=== PATIENT | male | born 1940 | race African-American/Black ===

== ENCOUNTER 2017-01-04 23:10 | Emergency (ER) | payer MEDICARE ==
[~2017-01-04] VITALS: Ht 170.2 cm; Wt 82.8 kg
[~2017-01-04 23:10] MED LIST: ADVAIR DISKUS PO; ALBUTERO1 IN; BACTRIM DS1 TAB PO; CIPRO500 MG OR; COMBIVENT IN; DOXYCYC MONO100 MG OR; LIPITOR10 MG OR; LISINOPRIL10 MG PO; LORTAB 5 OR; LYRICA150 MG PO; MEDDOSEPAK OR; METFORMIN500 MG OR; PREDNISONE20 MG OR; PREVACID30 M1 PO; ROBITUSSIN200 MG/10 PO; SINGULAIR OR; TESSALON PER100 MG PO; THEO-24200 MG OR; ULTRAM50 M1 PO; ULTRAM50 MG PO; ZITHROMAX250 MG PO; ZPAK PO
[2017-01-05 02:34] LABS: HEMATOCRIT 38.3 % (39.0-50.0); IMMATURE GRANULOCYTES 0.2 % (0.0-1.0); MEAN CELL VOLUME 87.2 fL CALC (80.0-100.0); MEAN CORPUSCULAR HGB 29.6 pG CALC (26.0-32.0); MEAN CORPUSCULAR HGB CONC 33.9 g/L CALC (32.0-36.0); NEUT# 2.52 thou/uL (1.82-7.42); RED BLOOD COUNT 4.39 mill/uL (4.70-6.10); RED CELL DISTRI WIDTH 13.4 % (11.5-15.5)
[2017-01-05 02:53] LABS: INFLUENZA A NONE DETECTED (NONE DETECT); INFLUENZA B NONE DETECTED (NONE DETECT)
[2017-01-05 02:56] LABS: ACT PARTIAL THROMBO TIME 29.6 SECONDS (20.0-32.5); INTERNATIONAL NORMALIZED RATIO 0.9 RATIO (0.7-1.3); PROTHROMBIN TIME 9.8 SECONDS (9.0-12.5)
[2017-01-05 02:57] LABS: ALBUMIN 3.9 g/dL (3.2-5.0); ALKALINE PHOSPHATASE 79 u/l (38-126); ANION GAP 16 (6-22 (CALC)); BILIRUBIN, TOTAL 0.8 mg/dL (0.0-1.4); BUN 14 mg/dL (8-23); BUN/CREATININE RATIO 15 (12-20 (CALC)); CALCIUM 8.4 mg/dL (8.4-10.2); CARBON DIOXIDE 25 mmol/l (22-30); CHLORIDE 102 mmol/l (95-108); GFR > 60 ML/MIN (>=60 (CALC)); GFR FOR AFR.AMER. > 60 ML/MIN (>=60 (CALC)); GLUCOSE 91 mg/dL (82-115); SGOT/AST 45 u/l (19-48); SGPT/ALT 33 u/l (11-66); SODIUM 139 mmol/l (137-146); TOTAL PROTEIN 7.5 g/dL (6.3-8.2)
[2017-01-05 03:08] LABS: MYOGLOBIN 72 ng/mL (0 - 121)
[2017-01-05 03:32] LABS: URINE BILIRUBIN - DIPSTICK NEGATIVE (NEGATIVE); URINE BLOOD DIPSTICK NEGATIVE (NEGATIVE); URINE CLARITY CLEAR; URINE COLOR YELLOW; URINE GLUCOSE - DIPSTICK NEGATIVE (NEGATIVE); URINE KETONE NEGATIVE (NEGATIVE); URINE LEUK ESTERASE NEGATIVE (NEGATIVE); URINE NITRITE - DIPSTICK NEGATIVE (Negative); URINE PROTEIN - DIPSTICK NEGATIVE (NEG-TRACE); URINE SPECIFIC GRAVITY 1.025; URINE UROBILINOGEN - DIPSTICK 0.2 E.U./dL (0.2)
[2017-01-05 04:40] VITALS: BP 137/71
== END 2017-01-05 04:38 | disposition home or self-care (01) ==
LOC: ED 23:10
PROVIDERS: Emergency Medicine
DX: J44.1 Chronic obstructive pulmonary disease with (acute) exacerbation (principal); R05 Cough; R06.02 Shortness of breath

== ENCOUNTER 2017-02-06 01:35 | Emergency (ER) | payer MEDICARE ==
[~2017-02-06] VITALS: Ht 170.2 cm; Wt 83.6 kg
[2017-02-06 02:46] LABS: INFLUENZA A NONE DETECTED (NONE DETECT); INFLUENZA B NONE DETECTED (NONE DETECT)
[2017-02-06 03:07] LABS: HEMATOCRIT 38.6 % (39.0-50.0); HEMOGLOBIN 13.1 g/dl (14.0-18.0); IMMATURE GRANULOCYTES 0.2 % (0.0-1.0); MEAN CELL VOLUME 87.7 fL CALC (80.0-100.0); MEAN CORPUSCULAR HGB 29.8 pG CALC (26.0-32.0); MEAN CORPUSCULAR HGB CONC 33.9 g/L CALC (32.0-36.0); NEUT# 3.7 thou/uL (1.82-7.42); RED BLOOD COUNT 4.4 mill/uL (4.70-6.10); RED CELL DISTRI WIDTH 13.7 % (11.5-15.5)
[2017-02-06 03:19] LABS: ALBUMIN 4.1 g/dL (3.2-5.0); ALKALINE PHOSPHATASE 67 u/l (38-126); ANION GAP 13 (6-22 (CALC)); BILIRUBIN, TOTAL 0.6 mg/dL (0.0-1.4); BUN 10 mg/dL (8-23); BUN/CREATININE RATIO 11 (12-20 (CALC)); CALCIUM 8.8 mg/dL (8.4-10.2); CARBON DIOXIDE 27 mmol/l (22-30); CHLORIDE 106 mmol/l (95-108); CREATININE 0.9 mg/dL (0.7-1.3); GFR > 60 ML/MIN (>=60 (CALC)); GFR FOR AFR.AMER. > 60 ML/MIN (>=60 (CALC)); GLUCOSE 101 mg/dL (82-115); POTASSIUM 3.9 mmol/l (3.5-5.1); SGOT/AST 43 u/l (19-48); SGPT/ALT 40 u/l (11-66); SODIUM 142 mmol/l (137-146); TOTAL PROTEIN 7.6 g/dL (6.3-8.2)
[2017-02-06] MEDS ORDERED: ROBITUSSIN AC10 ML PO (03:26)
[2017-02-06] MEDS ORDERED: CEPHALEXIN500 MG PO (03:26)
[2017-02-06] MEDS ORDERED: MEDDOSEPAK PO (03:26)
[2017-02-06 03:30] LABS: MYOGLOBIN 107 ng/mL (0 - 121)
[2017-02-06 04:05] VITALS: BP 137/80
== END 2017-02-06 04:50 | disposition home or self-care (01) ==
LOC: ED 01:35
PROVIDERS: Emergency Medicine
DX: J44.1 Chronic obstructive pulmonary disease with (acute) exacerbation (principal); J06.9 Acute upper respiratory infection, unspecified; R05 Cough

== ENCOUNTER 2017-10-02 18:30 | Emergency (ER) | payer MEDICARE ==
[~2017-10-02] VITALS: Ht 170.2 cm; Wt 84.0 kg
[~2017-10-02 18:30] MED LIST changes: +CEPHALEXIN500 MG PO; +MEDDOSEPAK PO; +ROBITUSSIN AC10 ML PO
[2017-10-02 19:57] LABS: HEMATOCRIT 43.5 % (39.0-50.0); HEMOGLOBIN 14.2 g/dl (14.0-18.0); IMMATURE GRANULOCYTES 0.3 % (0.0-1.0); MEAN CELL VOLUME 91.2 fL CALC (80.0-100.0); MEAN CORPUSCULAR HGB 29.8 pG CALC (26.0-32.0); MEAN CORPUSCULAR HGB CONC 32.6 g/L CALC (32.0-36.0); NEUT# 4.27 thou/uL (1.82-7.42); RED BLOOD COUNT 4.77 mill/uL (4.70-6.10)
[2017-10-02 20:02] LABS: ALBUMIN 4.3 g/dL (3.2-5.0); ALKALINE PHOSPHATASE 69 u/l (38-126); AMYLASE 109 u/l (30-110); ANION GAP 15 (6-22 (CALC)); BILIRUBIN, TOTAL 1.2 mg/dL (0.0-1.4); BUN 19 mg/dL (8-23); BUN/CREATININE RATIO 20 (12-20 (CALC)); CALCIUM 9.2 mg/dL (8.4-10.2); CARBON DIOXIDE 28 mmol/l (22-30); CHLORIDE 103 mmol/l (95-108); CREATININE 0.9 mg/dL (0.7-1.3); GFR > 60 ML/MIN (>=60 (CALC)); GFR FOR AFR.AMER. > 60 ML/MIN (>=60 (CALC)); GLUCOSE 102 mg/dL (82-115); LIPASE 238 u/l (23-300); POTASSIUM 4.7 mmol/l (3.5-5.1); SGOT/AST 51 u/l (19-48); SGPT/ALT 38 u/l (11-66); SODIUM 141 mmol/l (137-146)
[2017-10-02 20:14] LABS: MYOGLOBIN 55 ng/mL (0 - 121)
[2017-10-02 22:00] VITALS: BP 148/76
[2017-10-02] MEDS ORDERED: ZOFRAN ODT4 MG PO (22:18)
== END 2017-10-02 22:00 | disposition left against medical advice (07) ==
LOC: ED 18:30
PROVIDERS: Emergency Medicine
DX: R10.84 Generalized abdominal pain (principal); R11.2 Nausea with vomiting, unspecified; R19.7 Diarrhea, unspecified; I10 Essential (primary) hypertension; E11.8 Type 2 diabetes mellitus with unspecified complications; Z79.84 Long term (current) use of oral hypoglycemic drugs; Z91.19 Patient's noncompliance with other medical treatment and regimen
CPT/HCPCS: S0164

== ENCOUNTER 2018-01-19 09:06 | Emergency (ER) | payer OTHER, MEDICARE ==
[~2018-01-19] VITALS: Ht 170.2 cm; Wt 70.0 kg
[~2018-01-19 09:06] MED LIST changes: +ZOFRAN ODT4 MG PO
[2018-01-19 09:15] VITALS: BP 177/88
== END 2018-01-19 09:31 | disposition left against medical advice (07) | DRG 951 ==
LOC: ED 09:06 → LWOBS 09:31
DX: Z91.19 Patient's noncompliance with other medical treatment and regimen (principal)

== ENCOUNTER 2019-11-16 | Emergency (ER) | payer MEDICARE ==
[2019-11-16 21:34] LABS: HEMATOCRIT 39.1 % (39.0-50.0); IMMATURE GRANULOCYTES 0.2 % (0.0-5.0); MEAN CELL VOLUME 88.9 fL CALC (80.0-100.0); MEAN CORPUSCULAR HGB 29.5 pG CALC (26.0-32.0); MEAN CORPUSCULAR HGB CONC 33.2 g/L CALC (32.0-36.0); NEUT# 2.27 thou/uL (1.82-7.42); RED BLOOD COUNT 4.4 mill/uL (4.70-6.10); RED CELL DISTRI WIDTH 13.6 % (11.5-15.5)
[2019-11-16 21:59] LABS: ALBUMIN 4.1 g/dL (3.2-5.0); ALKALINE PHOSPHATASE 75 u/l (38-126); ANION GAP 14 (6-22 (CALC)); BILIRUBIN, TOTAL 0.9 mg/dL (0.0-1.4); BUN 32 mg/dL (8-23); BUN/CREATININE RATIO 27 (12-20 (CALC)); CARBON DIOXIDE 24 mmol/l (22-30); CHLORIDE 103 mmol/l (95-108); CREATININE 1.2 mg/dL (0.7-1.3); GFR 58 ML/MIN (>=60 (CALC)); GFR FOR AFR.AMER. > 60 ML/MIN (>=60 (CALC)); POTASSIUM 4.2 mmol/l (3.5-5.1); SGOT/AST 43 u/l (19-48); SODIUM 136 mmol/l (137-146); TOTAL PROTEIN 7.7 g/dL (6.3-8.2)
[2019-11-16 22:10] LABS: MYOGLOBIN 168 ng/mL (0 - 121)
[2019-11-17] MEDS ORDERED: CODEINE/GUAIFEN1 SOL PO (00:15)
[2019-11-17] MEDS ORDERED: Levaquin PO (00:15)
[2019-11-17 00:34] LABS: URINE BILIRUBIN - DIPSTICK NEGATIVE (NEGATIVE); URINE BLOOD DIPSTICK NEGATIVE (NEGATIVE); URINE COLOR YELLOW; URINE GLUCOSE - DIPSTICK NEGATIVE (NEGATIVE); URINE KETONE NEGATIVE (NEGATIVE); URINE LEUK ESTERASE NEGATIVE (NEGATIVE); URINE NITRITE - DIPSTICK NEGATIVE (Negative); URINE PROTEIN - DIPSTICK NEGATIVE (NEG-TRACE)
== END 2019-11-17 00:40 | disposition home or self-care (01) ==
PROVIDERS: Emergency Medicine
DX: J43.9 Emphysema, unspecified (principal); I10 Essential (primary) hypertension; E11.9 Type 2 diabetes mellitus without complications

== ENCOUNTER 2021-11-15 03:28 | Emergency (ER) | payer MEDICARE ==
[~2021-11-15] VITALS: Ht 152.4 cm; Wt 78.0 kg
[~2021-11-15 03:28] MED LIST changes: +CODEINE/GUAIFEN1 SOL PO; +Levaquin PO
[2021-11-15 04:18] LABS: HEMATOCRIT 43.2 % (39.0-50.0); HEMOGLOBIN 14.1 g/dl (14.0-18.0); IMMATURE GRANULOCYTES 0.4 % (0.0-5.0); MEAN CELL VOLUME 91.7 fL CALC (80.0-100.0); MEAN CORPUSCULAR HGB 29.9 pG CALC (26.0-32.0); MEAN CORPUSCULAR HGB CONC 32.6 g/dL CAL (32.0-36.0); NEUT# 2.7 thou/uL (1.82-7.42); RED BLOOD COUNT 4.71 mill/uL (4.70-6.10); RED CELL DISTRI WIDTH 13.5 % (11.5-15.5)
[2021-11-15 04:34] LABS: ALBUMIN 4.3 g/dL (3.2-5.0); ALKALINE PHOSPHATASE 64 u/l (38-126); ANION GAP 12 (6-22 (CALC)); BILIRUBIN, TOTAL 0.8 mg/dL (0.0-1.4); BUN 17 mg/dL (8-23); BUN/CREATININE RATIO 14 (12-20 (CALC)); CARBON DIOXIDE 28 mmol/l (22-30); CHLORIDE 102 mmol/l (95-108); CREATININE 1.2 mg/dL (0.7-1.3); GFR 58 ML/MIN (>=60 (CALC)); GFR FOR AFR.AMER. > 60 ML/MIN (>=60 (CALC)); POTASSIUM 4.9 mmol/l (3.5-5.1); SGOT/AST 41 u/l (19-48); SODIUM 138 mmol/l (137-146); TOTAL PROTEIN 8.2 g/dL (6.3-8.2)
[2021-11-15 04:45] LABS: MYOGLOBIN 109 ng/mL (0 - 121)
[2021-11-15] MEDS ORDERED: KEFLEX500 MG PO (04:54)
[2021-11-15] MEDS ORDERED: ROBITUSSIN AC10 ML PO (04:54)
[2021-11-15 05:39] VITALS: BP 142/74
== END 2021-11-15 05:39 | disposition home or self-care (01) ==
LOC: ED 03:28
PROVIDERS: Emergency Medicine
DX: J43.9 Emphysema, unspecified (principal); J06.9 Acute upper respiratory infection, unspecified; I10 Essential (primary) hypertension; E11.9 Type 2 diabetes mellitus without complications; Z99.81 Dependence on supplemental oxygen; T41.5X6A Underdosing of therapeutic gases, initial encounter; Z91.128 Patient's intentional underdosing of medication regimen for other reason; Z79.84 Long term (current) use of oral hypoglycemic drugs; Z20.822 Contact with and (suspected) exposure to COVID-19

== ENCOUNTER 2022-01-08 10:37 | Emergency (ER) | payer OTHER, MEDICARE ==
[~2022-01-08] VITALS: Ht 170.2 cm; Wt 81.8 kg
[~2022-01-08 10:37] MED LIST changes: +KEFLEX500 MG PO
[2022-01-08 13:26] LABS: HEMATOCRIT 43.1 % (39.0-50.0); HEMOGLOBIN 14.1 g/dl (14.0-18.0); IMMATURE GRANULOCYTES 0.4 % (0.0-5.0); MEAN CELL VOLUME 91.5 fL CALC (80.0-100.0); MEAN CORPUSCULAR HGB 29.9 pG CALC (26.0-32.0); MEAN CORPUSCULAR HGB CONC 32.7 g/dL CAL (32.0-36.0); NEUT# 2.52 thou/uL (1.82-7.42); RED BLOOD COUNT 4.71 mill/uL (4.70-6.10); RED CELL DISTRI WIDTH 14.1 % (11.5-15.5)
[2022-01-08 13:47] LABS: ALKALINE PHOSPHATASE 61 u/l (38-126); ANION GAP 14 (6-22 (CALC)); BILIRUBIN, TOTAL 0.6 mg/dL (0.0-1.4); BUN 14 mg/dL (8-23); BUN/CREATININE RATIO 12 (12-20 (CALC)); CARBON DIOXIDE 26 mmol/l (22-30); CHLORIDE 104 mmol/l (95-108); CREATININE 1.2 mg/dL (0.7-1.3); GFR 58 ML/MIN (>=60 (CALC)); GFR FOR AFR.AMER. > 60 ML/MIN (>=60 (CALC)); LIPASE 237 u/l (23-300); POTASSIUM 4.6 mmol/l (3.5-5.1); SGOT/AST 42 u/l (19-48); SODIUM 140 mmol/l (137-146)
[2022-01-08 14:20] VITALS: BP 164/98
== END 2022-01-08 14:45 | disposition short-term general hospital (02) | DRG 87 ==
LOC: ED 10:37
PROVIDERS: Family Medicine
DX: S06.300A Unspecified focal traumatic brain injury without loss of consciousness, initial encounter (principal); M54.2 Cervicalgia; I10 Essential (primary) hypertension; E11.9 Type 2 diabetes mellitus without complications; J43.9 Emphysema, unspecified; V53.6XXA Passenger in pick-up truck or van injured in collision with car, pick-up truck or van in traffic accident, initial encounter; Z79.84 Long term (current) use of oral hypoglycemic drugs
CPT/HCPCS: J1953

== ENCOUNTER 2022-12-06 08:47 | Emergency (ER) | payer MEDICARE ==
[~2022-12-06] VITALS: Ht 170.2 cm; Wt 77.1 kg
[2022-12-06] VITALS (7 sets, daily range): BP systolic 106–157; BP diastolic 77–102
[2022-12-06 09:29] LABS: BASO% 0.7 % (0-3); EOS% 2.4 % (0-8); HEMATOCRIT 41.9 % (39.0-50.0); LYMPH% 16.3 % (15-41); MEAN CELL VOLUME 92.3 fL CALC (80.0-100.0); MEAN CORPUSCULAR HGB 30.8 pG CALC (26.0-32.0); MEAN CORPUSCULAR HGB CONC 33.4 g/dL CAL (32.0-36.0); MONO% 12.4 % (2-13); NEUT# 2.85 thou/uL (1.82-7.42); NEUT% 68.2 % (42-76); RED BLOOD COUNT 4.54 mill/uL (4.70-6.10); RED CELL DISTRI WIDTH 13.7 % (11.5-15.5)
[2022-12-06 09:38] LABS: ALBUMIN 4.6 g/dL (3.2-5.0); ALKALINE PHOSPHATASE 65 u/l (38-126); ANION GAP 16 (6-22 (CALC)); BUN 17 mg/dL (8-23); BUN/CREATININE RATIO 18 (12-20 (CALC)); CARBON DIOXIDE 23 mmol/l (22-30); CHLORIDE 106 mmol/l (95-108); GFR FOR AFR.AMER. > 60 ML/MIN (>=60 (CALC)); GFR OTHER RACES > 60 ML/MIN (>=60 (CALC)); POTASSIUM 4.4 mmol/l (3.5-5.1); SGOT/AST 37 u/l (19-48); SODIUM 140 mmol/l (137-146); TOTAL PROTEIN 8.1 g/dL (6.3-8.2)
[2022-12-06 10:18] LABS: URINE BILIRUBIN - DIPSTICK NEGATIVE (NEGATIVE); URINE BLOOD DIPSTICK TRACE-INTACT (NEGATIVE); URINE COLOR YELLOW; URINE GLUCOSE - DIPSTICK NEGATIVE (NEGATIVE); URINE KETONE 15 mg/dL (NEGATIVE); URINE LEUK ESTERASE NEGATIVE (NEGATIVE); URINE PH 5.5 (4.5-8.0); URINE PROTEIN - DIPSTICK NEGATIVE (NEG-TRACE); URINE SPECIFIC GRAVITY >=1.030; URINE UROBILINOGEN - DIPSTICK 0.2 E.U./dL (0.2)
[2022-12-06 10:19] LABS: URINE NITRITE - DIPSTICK NEGATIVE (Negative)
== END 2022-12-06 14:02 | disposition home or self-care (01) ==
LOC: ED 08:47
PROVIDERS: Family Medicine
PROC: 0HQ0XZZ Repair Scalp Skin, External Approach (ICD-10-PCS; principal; 2022-12-06)
DX: S01.01XA Laceration without foreign body of scalp, initial encounter (principal); I10 Essential (primary) hypertension; E11.9 Type 2 diabetes mellitus without complications; J43.9 Emphysema, unspecified; E78.5 Hyperlipidemia, unspecified; F03.90 Unspecified dementia, unspecified severity, without behavioral disturbance, psychotic disturbance, mood disturbance, and anxiety; W01.0XXA Fall on same level from slipping, tripping and stumbling without subsequent striking against object, initial encounter; Y92.009 Unspecified place in unspecified non-institutional (private) residence as the place of occurrence of the external cause

== ENCOUNTER 2023-01-17 12:57 | Emergency (ER) | payer MEDICARE ==
[~2023-01-17] VITALS: Ht 170.2 cm; Wt 86.0 kg
[2023-01-17 15:16] VITALS: BP 158/94
[2023-01-17 15:31] VITALS: BP 166/108
[2023-01-17 15:45] VITALS: BP 164/103
[2023-01-17 16:15] VITALS: BP 166/97
[2023-01-17 16:31] VITALS: BP 139/108
[2023-01-17 18:03] LABS: BASO% 0.5 % (0-3); EOS% 0.1 % (0-8); HEMATOCRIT 46.4 % (39.0-50.0); IMMATURE GRANULOCYTES 0.1 % (0.0-5.0); LYMPH% 9.5 % (15-41); MEAN CELL VOLUME 91.3 fL CALC (80.0-100.0); MEAN CORPUSCULAR HGB 29.5 pG CALC (26.0-32.0); MEAN CORPUSCULAR HGB CONC 32.3 g/dL CAL (32.0-36.0); MONO% 8.6 % (2-13); NEUT# 6.04 thou/uL (1.82-7.42); NEUT% 81.2 % (42-76); RED BLOOD COUNT 5.08 mill/uL (4.70-6.10); RED CELL DISTRI WIDTH 13.3 % (11.5-15.5)
[2023-01-17 18:46] LABS: ALBUMIN 5.2 g/dL (3.2-5.0); ALKALINE PHOSPHATASE 63 u/l (38-126); ANION GAP 19 (6-22 (CALC)); BILIRUBIN, TOTAL 1.9 mg/dL (0.2-1.3); BUN 34 mg/dL (8-23); BUN/CREATININE RATIO 27 (12-20 (CALC)); CARBON DIOXIDE 26 mmol/l (22-30); CHLORIDE 100 mmol/l (95-108); CREATININE 1.3 mg/dL (0.7-1.3); GFR FOR AFR.AMER. > 60 ML/MIN (>=60 (CALC)); GFR OTHER RACES 53 ML/MIN (>=60 (CALC)); POTASSIUM 4.8 mmol/l (3.5-5.1); SGOT/AST 148 u/l (19-48); SODIUM 141 mmol/l (137-146); TOTAL PROTEIN 8.5 g/dL (6.3-8.2)
[2023-01-17 20:26] VITALS: BP 139/108
== END 2023-01-17 20:41 | disposition home or self-care (01) ==
LOC: ED 12:57
PROVIDERS: Nurse Practitioner
PROC: 0HQ0XZZ Repair Scalp Skin, External Approach (ICD-10-PCS; principal; 2023-01-17)
DX: S01.01XA Laceration without foreign body of scalp, initial encounter (principal); F03.918 Unspecified dementia, unspecified severity, with other behavioral disturbance; I10 Essential (primary) hypertension; E11.9 Type 2 diabetes mellitus without complications; J43.9 Emphysema, unspecified; V48.4XXA Person boarding or alighting a car injured in noncollision transport accident, initial encounter

== ENCOUNTER 2023-05-22 10:35 | Emergency (ER) | payer MEDICARE ==
[~2023-05-22] VITALS: Ht 167.6 cm; Wt 77.0 kg
[2023-05-22] MEDS ORDERED: OMEPRAZOLE DR40 MG PO (11:02)
[2023-05-22 11:18] VITALS: BP 159/88
== END 2023-05-22 11:18 | disposition left against medical advice (07) ==
LOC: ED 10:35
DX: R06.02 Shortness of breath (principal); I10 Essential (primary) hypertension; E11.9 Type 2 diabetes mellitus without complications; J43.9 Emphysema, unspecified; Z53.29 Procedure and treatment not carried out because of patient's decision for other reasons; Z20.822 Contact with and (suspected) exposure to COVID-19

== ENCOUNTER 2025-01-22 21:53 | Emergency (ER) | payer OTHER, MEDICARE ==
[~2025-01-22] VITALS: Ht 167.6 cm; Wt 71.6 kg
[~2025-01-22 21:53] MED LIST changes: +IPRATROPIU0.5 MG/3 M IN; +OMEPRAZOLE DR40 MG PO; +PREDNISONE50 MG PO; +SEROQUEL50 MG PO; +TAM75CAP PO
[2025-01-22] MEDS ORDERED: methylPREDNISolone SODIUM SUCC 125 MG/2 ML SDV IV ONE (22:00)
[2025-01-22] MEDS ORDERED: IPRATROPIUM-Albuterol 0.5MG-2.5MG/3 ML NEB ONE (22:00)
[2025-01-22 22:22] LABS: BASO% 0.4 % (0-3); EOS% 0.6 % (0-8); HEMATOCRIT 41.4 % (39.0-50.0); HEMOGLOBIN 13.1 g/dl (14.0-18.0); IMMATURE GRANULOCYTES 0.1 % (0.0-5.0); LYMPH% 9.6 % (15-41); MEAN CELL VOLUME 89.2 fL CALC (80.0-100.0); MEAN CORPUSCULAR HGB 28.2 pG CALC (26.0-32.0); MEAN CORPUSCULAR HGB CONC 31.6 g/dL CAL (32.0-36.0); MONO% 10.9 % (2-13); NEUT# 6.1 thou/uL (1.82-7.42); NEUT% 78.4 % (42-76); RED BLOOD COUNT 4.64 mill/uL (4.70-6.10)
[2025-01-22 22:23] VITALS: BP 154/76
[2025-01-22 22:34] LABS: ALBUMIN 4.7 g/dL (3.2-5.0); ALKALINE PHOSPHATASE 117 u/l (38-126); BUN 25 mg/dL (8-23); BUN/CREATININE RATIO 20 (12-20 (CALC)); CARBON DIOXIDE 23 mmol/l (22-30); CHLORIDE 104 mmol/l (95-108); CREATININE 1.3 mg/dL (0.7-1.3); ESTIMATED GFR 54 ML/MIN (>=90 (CALC)); SGOT/AST 70 u/l (19-48); SODIUM 139 mmol/l (137-146); TOTAL PROTEIN 8.1 g/dL (6.3-8.2)
[2025-01-22 22:35] LABS: ANION GAP 18 (6-22 (CALC)); BILIRUBIN, TOTAL 1.5 mg/dL (0.2-1.3); POTASSIUM 5.5 mmol/l (3.5-5.1)
[2025-01-22 23:00] VITALS: BP 143/69
[2025-01-22] MEDS ORDERED: ADVAIR DISK1 IN (23:16)
[2025-01-22] MEDS ORDERED: predniSONE 20 MG/TAB PO ONE (23:20)
[2025-01-22 23:39] VITALS: BP 143/69
== END 2025-01-22 23:45 | disposition home or self-care (01) | DRG 192 ==
LOC: ED 21:53
PROVIDERS: Family Medicine
DX: J44.1 Chronic obstructive pulmonary disease with (acute) exacerbation (principal); J43.9 Emphysema, unspecified; I10 Essential (primary) hypertension; E11.9 Type 2 diabetes mellitus without complications; Z20.822 Contact with and (suspected) exposure to COVID-19